=== PATIENT | male | born 1945 | race Caucasian/White ===

== ENCOUNTER 2023-08-06 15:29 | Outpatient (REF) | payer OTHER, SELFPAY ==
[2023-08-06 21:43] LABS: Prothrombin Time 48.4 sec (9.1-11.1)
[2023-08-06 21:52] LABS: INR 5.6 (0.9-1.1)
[2023-08-06 21:57] LABS: HCT 35.1 % (40.0-50.0); HGB 11.9 g/dL (13.5-17.5); MCH 32.2 pg (27.0-33.0); MCHC 33.9 % (32.0-36.0); MCV 95 fL (80-95); MPV 10.7 fL (8.0-11.0); Platelet Count 389 10^3/uL (130-400); RDW 11.9 % (11.8-14.1); RDW-SD 41.8 fL
[2023-08-06 22:12] LABS: Hemoglobin A1C 7.7 % (<5.7)
[2023-08-06 22:35] LABS: ALT 16 U/L (16-63); AST 18 U/L (15-37); Albumin 2.9 g/dL (3.4-5.0); Alkaline Phosphatase 70 U/L (46-116); Anion Gap 10.8 mmol/L (3-11); BUN 20 mg/dL (7-18); Bilirubin, Total 0.4 mg/dL (0.2-1.0); CO2 24.2 mmol/L (21.0-32.0); Calcium 9.6 mg/dL (8.5-10.1); Calculated LDL 48 mg/dL (<100); Chloride 98 mmol/L (98-107); Cholesterol 106 mg/dL (<200); Estimated GFR 76.56 (mL/min/1.73m2); Glucose 175 mg/dL (74-106); HDL Cholesterol 43 mg/dL (40-60); Potassium 4.5 mmol/L (3.5-5.1); Sodium 133 mmol/L (136-145); TSH (W/Ref FT4) 2.26 uIU/mL (0.36-3.74); Triglyceride 76 mg/dL (<150); Vitamin B12 184 pg/mL (193-986)
[2023-08-06 22:38] LABS: Folate > 20.0 ng/mL (8.6-20.0)
== END 2023-08-06 15:30 | disposition home or self-care (01) ==
LOC: NCHCN 15:29
PROVIDERS: Visit Provider Family Medicine
DX: D68.9 Coagulation defect, unspecified (principal); E11.21 Type 2 diabetes mellitus with diabetic nephropathy; R00.8 Other abnormalities of heart beat; F10.20 Alcohol dependence, uncomplicated
CPT/HCPCS: 80053; 80061; 85027; 82607; 82746; 83036; 84443; 85610

== ENCOUNTER 2023-08-19 16:45 | Outpatient (REF) | payer OTHER, SELFPAY ==
[2023-08-19 21:38] LABS: HCT 33.9 % (40.0-50.0); HGB 11.3 g/dL (13.5-17.5); MCH 31.8 pg (27.0-33.0); MCHC 33.3 % (32.0-36.0); MCV 96 fL (80-95); MPV 10.4 fL (8.0-11.0); Platelet Count 391 10^3/uL (130-400); RBC 3.55 10^6/uL (4.36-5.78); RDW 11.9 % (11.8-14.1); RDW-SD 41.7 fL; WBC 10.91 10^3/uL (4.4-10.8)
[2023-08-19 21:43] LABS: Iron 26 ug/dL (65-175); Total Iron Binding Capacity 209 ug/dL (250-450); Transferrin Sat 12 % (20-55)
[2023-08-19 22:18] LABS: Ferritin 1041 ng/mL (26-388); Folate > 20.0 ng/mL (8.6-20.0)
== END 2023-08-19 16:46 | disposition home or self-care (01) ==
LOC: NCHCN 16:45
PROVIDERS: Visit Provider Registered Nurse
DX: D64.9 Anemia, unspecified (principal)
CPT/HCPCS: 85027; 82728; 82746; 83540; 83550

== ENCOUNTER 2023-09-09 14:51 | Outpatient (REF) | payer OTHER, SELFPAY ==
[2023-09-09 16:09] LABS: Abs Immature Grans 0.06 10^3/uL (0.0-0.06); Absolute Basophil Count 0.08 10^3/uL (0.0-0.2); Absolute Eosinophil Count 0.39 10^3/uL (0.0-0.7); Absolute Lymphocyte Count 1.29 10^3/uL (1.2-3.4); Absolute Monocyte Count 0.49 10^3/uL (0.1-0.8); Absolute Neutrophil Count 4.57 10^3/uL (1.2-6.7); Basophils % 1.2; Eosinophils % 5.7; HCT 31.5 % (40.0-50.0); HGB 10.3 g/dL (13.5-17.5); Immature Grans % 0.9; Lymphocytes % 18.8; MCH 30.7 pg (27.0-33.0); MCHC 32.7 % (32.0-36.0); MCV 94 fL (80-95); MPV 10.5 fL (8.0-11.0); Monocytes % 7.1; Neutrophils % 66.3; Platelet Count 312 10^3/uL (130-400); RBC 3.35 10^6/uL (4.36-5.78); RDW 13.2 % (11.8-14.1); RDW-SD 45.2 fL; WBC 6.88 10^3/uL (4.4-10.8)
[2023-09-09 16:22] LABS: ESR 38 mm/hr (0-20)
[2023-09-09 16:30] LABS: Anion Gap 12.6 mmol/L (3-11); BUN 12 mg/dL (7-18); C-Reactive Protein 1.38 mg/dL (0.0-0.3); CO2 24.4 mmol/L (21.0-32.0); CREATININE 0.6 mg/dL (0.70-1.30); Calcium 8.7 mg/dL (8.5-10.1); Chloride 105 mmol/L (98-107); Estimated GFR 97.59 (mL/min/1.73m2); Glucose 212 mg/dL (74-106); Potassium 3.9 mmol/L (3.5-5.1); Sodium 142 mmol/L (136-145)
== END 2023-09-09 14:52 | disposition home or self-care (01) ==
LOC: LBN 14:51
PROVIDERS: Visit Provider Podiatrist
DX: M86.171 Other acute osteomyelitis, right ankle and foot (principal)
CPT/HCPCS: 80048; 85652; 85025; 86140

== ENCOUNTER 2023-09-17 15:46 | Outpatient (REF) | payer OTHER, SELFPAY ==
[2023-09-17 15:35] LABS: Abs Immature Grans 0.02 10^3/uL (0.0-0.06); Absolute Basophil Count 0.07 10^3/uL (0.0-0.2); Absolute Eosinophil Count 0.33 10^3/uL (0.0-0.7); Absolute Lymphocyte Count 1.42 10^3/uL (1.2-3.4); Absolute Monocyte Count 0.43 10^3/uL (0.1-0.8); Absolute Neutrophil Count 4.12 10^3/uL (1.2-6.7); Basophils % 1.1; Eosinophils % 5.2; HCT 33.3 % (40.0-50.0); HGB 10.6 g/dL (13.5-17.5); Immature Grans % 0.3; Lymphocytes % 22.2; MCH 30.7 pg (27.0-33.0); MCHC 31.8 % (32.0-36.0); MCV 97 fL (80-95); MPV 10.3 fL (8.0-11.0); Monocytes % 6.7; Neutrophils % 64.5; Platelet Count 228 10^3/uL (130-400); RBC 3.45 10^6/uL (4.36-5.78); RDW 14.3 % (11.8-14.1); WBC 6.39 10^3/uL (4.4-10.8)
[2023-09-17 15:44] LABS: ESR 41 mm/hr (0-20)
[2023-09-17 17:06] LABS: Anion Gap 10.8 mmol/L (3-11); BUN 13 mg/dL (7-18); C-Reactive Protein 0.34 mg/dL (0.0-0.3); CO2 25.2 mmol/L (21.0-32.0); CREATININE 0.7 mg/dL (0.70-1.30); Calcium 8.7 mg/dL (8.5-10.1); Chloride 105 mmol/L (98-107); Estimated GFR 93.15 (mL/min/1.73m2); Glucose 177 mg/dL (74-106); Sodium 141 mmol/L (136-145)
== END 2023-09-17 15:47 | disposition home or self-care (01) ==
LOC: LBN 15:46
PROVIDERS: Visit Provider Podiatrist
DX: M86.171 Other acute osteomyelitis, right ankle and foot (principal); B95.1 Streptococcus, group B, as the cause of diseases classified elsewhere; E11.9 Type 2 diabetes mellitus without complications; R79.89 Other specified abnormal findings of blood chemistry; R79.82 Elevated C-reactive protein (CRP); R70.0 Elevated erythrocyte sedimentation rate
CPT/HCPCS: 80048; 85652; 85025; 86140

== ENCOUNTER 2023-09-24 14:54 | Outpatient (REF) | payer OTHER, SELFPAY ==
[2023-09-24 15:30] LABS: Abs Immature Grans 0.02 10^3/uL (0.0-0.06); Absolute Basophil Count 0.05 10^3/uL (0.0-0.2); Absolute Eosinophil Count 0.24 10^3/uL (0.0-0.7); Absolute Lymphocyte Count 1.55 10^3/uL (1.2-3.4); Absolute Monocyte Count 0.33 10^3/uL (0.1-0.8); Absolute Neutrophil Count 3.94 10^3/uL (1.2-6.7); Basophils % 0.8; Eosinophils % 3.9; HCT 35.6 % (40.0-50.0); HGB 11.6 g/dL (13.5-17.5); Immature Grans % 0.3; Lymphocytes % 25.3; MCH 31.2 pg (27.0-33.0); MCHC 32.6 % (32.0-36.0); MCV 96 fL (80-95); MPV 10.9 fL (8.0-11.0); Monocytes % 5.4; Neutrophils % 64.3; Platelet Count 222 10^3/uL (130-400); RBC 3.72 10^6/uL (4.36-5.78); RDW 14.9 % (11.8-14.1); RDW-SD 51.8 fL; WBC 6.13 10^3/uL (4.4-10.8)
[2023-09-24 15:33] LABS: ESR 27 mm/hr (0-20)
[2023-09-24 15:57] LABS: Anion Gap 10.7 mmol/L (3-11); BUN 17 mg/dL (7-18); CO2 24.3 mmol/L (21.0-32.0); CREATININE 0.7 mg/dL (0.70-1.30); Calcium 9.1 mg/dL (8.5-10.1); Chloride 103 mmol/L (98-107); Estimated GFR 93.15 (mL/min/1.73m2); Glucose 133 mg/dL (74-106); Potassium 4.3 mmol/L (3.5-5.1); Sodium 138 mmol/L (136-145)
== END 2023-09-24 14:55 | disposition home or self-care (01) ==
LOC: LBN 14:54
PROVIDERS: Visit Provider Podiatrist
DX: M86.171 Other acute osteomyelitis, right ankle and foot (principal); B95.1 Streptococcus, group B, as the cause of diseases classified elsewhere; E11.69 Type 2 diabetes mellitus with other specified complication; R70.0 Elevated erythrocyte sedimentation rate
CPT/HCPCS: 80048; 85652; 85025; 86140

== ENCOUNTER 2023-09-30 15:55 | Outpatient (REF) | payer OTHER, SELFPAY ==
[2023-09-30 16:48] LABS: Abs Immature Grans 0.02 10^3/uL (0.0-0.06); Absolute Basophil Count 0.05 10^3/uL (0.0-0.2); Absolute Eosinophil Count 0.27 10^3/uL (0.0-0.7); Absolute Lymphocyte Count 1.48 10^3/uL (1.2-3.4); Basophils % 0.9; Eosinophils % 4.7; HCT 35.8 % (40.0-50.0); HGB 11.4 g/dL (13.5-17.5); Immature Grans % 0.3; Lymphocytes % 25.9; MCH 31.1 pg (27.0-33.0); MCHC 31.8 % (32.0-36.0); MCV 98 fL (80-95); MPV 11.4 fL (8.0-11.0); Neutrophils % 61.2; Platelet Count 204 10^3/uL (130-400); RBC 3.66 10^6/uL (4.36-5.78); RDW 15.6 % (11.8-14.1); RDW-SD 55.9 fL; WBC 5.72 10^3/uL (4.4-10.8)
[2023-09-30 16:50] LABS: ESR 18 mm/hr (0-20)
[2023-09-30 17:01] LABS: Anion Gap 10.8 mmol/L (3-11); BUN 17 mg/dL (7-18); C-Reactive Protein 0.09 mg/dL (0.0-0.3); CO2 24.2 mmol/L (21.0-32.0); CREATININE 0.8 mg/dL (0.70-1.30); Calcium 9.4 mg/dL (8.5-10.1); Chloride 107 mmol/L (98-107); Estimated GFR 89.47 (mL/min/1.73m2); Glucose 144 mg/dL (74-106); Potassium 4.5 mmol/L (3.5-5.1); Sodium 142 mmol/L (136-145)
== END 2023-09-30 15:56 | disposition home or self-care (01) ==
LOC: LBN 15:55
PROVIDERS: Visit Provider Podiatrist
DX: Z48.01 Encounter for change or removal of surgical wound dressing (principal); M86.171 Other acute osteomyelitis, right ankle and foot; B95.1 Streptococcus, group B, as the cause of diseases classified elsewhere; E11.69 Type 2 diabetes mellitus with other specified complication
CPT/HCPCS: 80048; 85652; 85025; 86140